=== PATIENT | male | born 1975 | race Caucasian/White ===

== ENCOUNTER 2016-10-21 11:26 | Emergency (ER) | payer OTHER ==
[~2016-10-21] VITALS: Ht 172.7 cm; Wt 68.0 kg
[~2016-10-21 11:26] MED LIST: ACETAMINOPHEN PO; CARAFATE PO; NICOTINE TRANSD21 MG EXT; NO MEDICATIONS; NORCO1 TAB 10/3 PO; PERCOCET 10/31 UDTA1 PO; PHENERGAN25 M1 PO; PHENERGAN25 MG PR; PROTONIX PO; SEROQUEL PO; TYLENOL #3 PO
[2016-10-21 12:42] LABS: URINE SOURCE CLEAN CATCH
[2016-10-21 12:50] LABS: URINE APPEARANCE CLEAR; URINE BILIRUBIN NEG (NEG); URINE BLOOD NEG (NEG); URINE COLOR DK YELLOW; URINE GLUCOSE NEG (NEG); URINE KETONE 1+ (NEG); URINE LEUKOCYTE ESTERASE NEG (NEG); URINE NITRATE NEG (NEG); URINE PROTEIN 1+ (NEG); URINE SPECIFIC GRAVITY 1.037 (1.003-1.035); URINE UROBILINOGEN 0.2 MG/DL (NEG)
[2016-10-21 12:53] LABS: URBCS1 AUWI 0-2 /[HPF] (0-2); URINE BACTERIA AUWI NEG (NEGATIVE); URINE SQUAMOUS EPITHELIAL CELL NONE SEEN /[HPF]; UWBCS1 AUWI 0-2 (0-5)
[2016-10-21 12:54] LABS: CULTURE INDICATED? NO
[2016-10-21 12:54] LABS: BASOPHIL# 0.1 X10e3 (0-0.3); BASOPHIL% 0.4 % (0-2.5); DIFF IND NO; EOSINOPHIL% 0.1 % (0.0-7.0); HEMATOCRIT 52.1 % (38.0-50.0); HEMOGLOBIN 17.3 gm/dL (13.0-16.0); LYMPHOCYTE# 2.5 X10e3 (1.0-3.5); LYMPHOCYTE% 16.9 % (17.0-45.0); MEAN CELL VOLUME 93.6 FL (83-96); MEAN CORPUSCULAR HEMOGLOBIN 31.1 PG (28-34); MEAN CORPUSCULAR HGB CONC 33.2 g/dL (30-36); MEAN PLATELET VOLUME 10.1 FL (6.5-11.5); MONOCYTE# 1.2 X10e3 (0-1.0); MONOCYTE% 8.2 % (3.0-12.0); NEUTROPHIL# 11.2 X10e3 (1.5-7.1); NEUTROPHIL% 74.4 % (40-75); PLATELET COUNT 299 X10e3 (140-420); RED BLOOD COUNT 5.56 X10e (3.90-5.60); RED CELL DISTRIBUTION WIDTH 13.7 % (11.0-15.5)
[2016-10-21 13:22] LABS: ALBUMIN SERUM 5.1 g/dL (3.5-5.0); BILIRUBIN, DIRECT 0.1 mg/dL (0.0-0.2); BILIRUBIN,INDIRECT 1.4 mg/dL (0.0-0.9); BILIRUBIN,TOTAL 1.5 mg/dL (0.2-2.0); BUN/CREATININE RATIO 21.66; CREATININE SERUM 1.2 mg/dL (0.6-1.4); GLOM FILT RATE Estimated 74.7 mL/min (>60); POTASSIUM 3.6 mmol/L (3.5-5.1); PROTEIN TOTAL SERUM 8.6 g/dL (6.0-8.3)
== END 2016-10-21 17:11 | disposition home or self-care (01) ==
LOC: CED 11:26
DX: R10.12 Left upper quadrant pain (principal); R11.2 Nausea with vomiting, unspecified; J44.9 Chronic obstructive pulmonary disease, unspecified; F17.200 Nicotine dependence, unspecified, uncomplicated; Z98.890 Other specified postprocedural states; Z79.899 Other long term (current) drug therapy
CPT/HCPCS: 36415; 80048; 80076; 81003; 83690; 85025; 96361; 96374; 96375; 96376; 99284; C9113; J2270; J2405

== ENCOUNTER 2016-10-27 12:42 | Observation (INO) | payer OTHER ==
[~2016-10-27] VITALS: Ht 172.7 cm; Wt 68.0 kg
--- NOTE | ~2016-10-27 | DS ---
Unit #: [id number] #: [id number] Patient: PAUL WASHBURN [id number] [address] [address] [id number] I MR#: [id number] NAME: PAUL WASHBURN ROOM: 227 Age: 41 Sex: M Admission Date: 10/27/2016 : 1975 Discharge Date: 10/29/2016 Attending Physician: Lalita Clark M.D. Primary Care Physician: Colt Bowles A.P.R.N. DISCHARGE SUMMARY FINAL DIAGNOSES 1. Abdominal pain, which is improved. 2. Intractable vomiting, which is resolved. 3. Gastroduodenitis status post biopsy. 4. Status post esophagogastroduodenoscopy, which showed normal esophagus, and gastroduodenitis is present. 5. History of pancreatitis in the past. 6. History of alcohol abuse; quit about 2 years ago per patient. 7. Polysubstance abuse. 8. Tobacco abuse. DISCHARGE MEDICATIONS 1. Zofran p.r.n. 2. Phenergan p.r.n. 3. Lipase/protease/amylase capsule 1 daily. 4. Sucralfate 1 gram q.i.d. 5. Protonix 40 mg b.i.d. CONSULTATIONS DONE DURING HOSPITALIZATION Dr. Fox from gastroenterology service. DIAGNOSTIC STUDIES LAB WORKUP ON DISCHARGE: Sodium 137, potassium 3.4, chloride 108, BUN 5, creatinine 0.8. Liver enzymes are stable. Albumin is 3.4, amylase and lipase in normal range. CBC shows WBC 9.1, hemoglobin 14, hematocrit 41.4, platelet count 152. Urinalysis was normal. Urine drug screen shows positive for benzodiazepine, marijuana and opiates. IMAGING: CT scan of the abdomen and pelvis was done during hospitalization, which shows no acute intraabdominal or intrapelvic pathology. Appendix is normal. HOSPITAL COURSE Mr. Washburn is a 41-year-old male who was admitted with abdominal pain and intractable nausea and vomiting. Dr. Fox was consulted. The patient had an EGD done, which showed dkvp-gh-luenctwl gastroduodenitis. Several erosions were seen in the gastric antrum. Biopsies were taken. Normal esophagus. The patient is doing much better at this time. The patient's vomiting has resolved. He has tolerated his diet for breakfast and for lunch. The patient is being discharged home on above medications. EXAMINATION ON DISCHARGE VITAL SIGNS: Blood pressure 129/80, respiratory rate 18, pulse 59, temperature 98.4, oxygen saturation 100%. Unit #: [id number] #: [id number] Patient: WHITE,PAUL HEENT: Head is normocephalic. RESPIRATORY: Chest has fair air entry. CVS: Regular rhythm. ABDOMEN: Soft. DISCHARGE INSTRUCTIONS 1. Follow up with primary care provider in 1 week. 2. Follow up with Dr. Fox in 1-2 weeks to follow up on the biopsy results. 3. Tobacco cessation counselling has been down. Plan of care has been discussed with the patient. Dictated by... Chula Le/ramon TD: 10/31/2016 11:20 JOB #: [id number] DISCHARGE SUMMARY Page 1 of 1 X Lalita Clark MD X DISCHARGE SUMMARY
--- NOTE | ~2016-10-27 | OR ---
Unit #: [id number] #: [id number] Patient: PAUL WASHBURN [id number] [address] [address] [id number] I MR#: [id number] NAME: PAUL WASHBURN ROOM: 227 Date of Procedure: 10/28/2016 Admission Date: 10/27/2016 Surgeon: Claudio Fox M.D. : 1975 Attending Physician: Lalita Clark M.D. Primary Care Physician: Colt Bowles A.P.R.N. OPERATIVE REPORT PROCEDURE PERFORMED Esophagogastroduodenoscopy with biopsy. INDICATIONS FOR PROCEDURE A 41-year-old with recurrent vomiting severe, unable to eat or drink for 10 days now. MEDICATIONS Monitored anesthesia. POSTOPERATIVE FINDINGS 1. Mild to moderate gastroduodenitis. Several erosions seen in gastric antrum. Biopsies taken. 2. Normal esophagus. PLAN 1. Continue with PPI and symptomatic treatment. 2. Follow up on pathology report. DESCRIPTION OF PROCEDURE The patient was explained of the procedure, risks, and benefits along with risks and benefits of anesthesia. He was brought to the endoscopy room. Propofol anesthesia was given. Bite block was placed. The scope was passed down the mouth into the esophagus, stomach, duodenum, and distal duodenum. Findings as described. Biopsies taken. Gently, the scope was pulled out. He tolerated it well. No major complications were seen. Dictated by... Chula Marinelli/balta TD: 10/28/2016 18:58 JOB #: [id number] Unit #: [id number] #: [id number] Patient: PAUL WASHBURN OPERATIVE REPORT Page 1 of 1 X Claudio Fox MD X PROCEDURE OPERATIVE NOTE
--- NOTE | ~2016-10-27 | HP ---
Unit #: [id number] #: [id number] Patient: PAUL WASHBURN [id number] [address] [place], [place] [address] [id number] I MR#: [id number] NAME: PAUL WASHBURN ROOM: 227 Age: 41 Sex: M Admission Date: 10/27/2016 : 1975 Attending Physician: Lalita Clark M.D. Primary Care Physician: Colt Bowles A.P.R.N. HISTORY AND PHYSICAL CHIEF COMPLAINT Abdominal, nausea and vomiting. HISTORY OF PRESENTING ILLNESS This is a 41-year-old male who has come to the ER 3 times prior to this admission with abdominal pain, intractable nausea and vomiting. According to the patient this has been going on since October 17. Off and on he is having severe pain, a level of 8 to 9/10, sometimes 10, and then after the pain, starts intractable nausea and vomiting. He is not able to eat or drink much. He came to the ER and was admitted. According to the patient, this has happened to him multiple times but not this severe and not for so long. The patient has history of pancreatitis in the past. The patient has history of alcohol abuse, quit about 2 years ago. What I understand, he has seen a advanced practice registered nurse in the past. He does not complain of fever, chills or rigors. No complaint of chest pain. No complaint of diarrhea or constipation. No complaint of syncopal episodes. PAST MEDICAL HISTORY 1. History of gastritis in the past. 2. History of pancreatitis. 3. History of alcohol abuse. 4. History of bipolar disorder. FAMILY HISTORY Noncontributory. SOCIAL HISTORY The patient continues to smoke 1/2 to 1 pack per day. According to him, he quit 2 years ago. He does admit to using marijuana. MEDICATIONS Home medications are being compiled. ALLERGIES None. REVIEW OF SYMPTOMS As per history of presenting illness. PHYSICAL EXAMINATION GENERAL: The patient is lying comfortably in bed. Does not seem to be in any respiratory distress. VITAL SIGNS: Blood pressure is 112/70, respiratory rate 18, pulse 62, Unit #: [id number] #: [id number] Patient: PAUL WASHBURN temperature 98.3, oxygen saturation 97%. HEENT: Head is normocephalic. Eye movements are normal. NECK: Neck is supple. Trachea is in midline. No thyromegaly. No bruit. RESPIRATORY: Chest has fair air entry. No adventitious sounds. CVS: S1, S2 positive. Regular rhythm. ABDOMEN: Soft. Tenderness is present in the epigastric area and left upper quadrant. EXTREMITIES: Negative edema. 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 No focal neurologic deficits. DIAGNOSTIC STUDIES LAB WORKUP: WBC 11.7, hemoglobin 16, hematocrit 48.6, platelet count 252. Sodium 141, potassium 3.6, chloride 103, BUN 12, creatinine 1.1, lipase 19, amylase 26. Liver enzymes are stable. Indirect bilirubin is elevated to 1.4. IMAGING: CT scan of the abdomen and pelvis was done in the ER, and that shows no acute intraabdominal or intrapelvic pathology. Appendix is normal. ASSESSMENT 1. The patient is being admitted to med/surg unit with acute abdominal pain. 2. Intractable nausea and vomiting. 3. History of pancreatitis in the past. Amylase and lipase is in normal range at this time. 4. History of alcohol abuse; according to the patient, quit 2 years ago. 5. History of gastritis. 6. Polysubstance abuse. 7. Tobacco abuse. PLAN Plan is admit to med/surg. IV fluid, D5 half normal saline at 100 an hour, is being started. The patient is NPO. Phenergan 12.5 mg q.6 p.r.n. Morphine 2 mg to 4 mg q.4 as needed for pain management. IV Protonix [address] Fox will be consulted. We will check amylase and lipase one more time. Plan of care has been discussed with the patient at length. Tobacco cessation counselling has been done. Nicotine patch will be placed. Dictated by Chula Le TD: 10/28/2016 08:12 JOB #: [id number] HISTORY AND PHYSICAL Page 1 of 1 X Lalita Clark MD HISTORY AND PHYSICAL
--- NOTE | ~2016-10-27 | CT2 ---
[facility] A Service of [facility] RADIOLOGY TEXT RESULTS PATIENT: MADDISONPAUL LOCATION: C2A : 75 UNIT #: [id number] AGE: [address]: Lalita Clark MD SEX: M ORDER DR: [id number] [facility]. [place], [place] [address] [id number] I MR#: [id number] Acc #: [id number] NAME: PAUL WASHBURN : 1975 SEX: M STUDY DATE/TIME: 10/27/2016 16:42 UNIT: [facility] ROOM: 227 STUDY DESCRIPTION: CT Abd and Pelv W Cont Attending Physician: Arnold Campbell M.D. Ordering Physician: Kate Ivey A.P.R.N. Primary Care Physician: Colt Bowles A.P.R.N. MEDICAL IMAGING REPORT This report is preliminary unless electronic signature is present EXAM CT abdomen and pelvis with contrast HISTORY 41-year-old male left upper and left lower quadrant abdominal pain since October 17, nausea, vomiting. Past history of pancreatitis, gastritis. COMPARISON CT abdomen and pelvis 11/30/2015. FINDINGS Axial images performed through the abdomen and pelvis following IV contrast. 100 mL Isovue-370 injected. Multiplanar reconstructions. This CT examination was performed with one or more of the following radiation dose reduction techniques: automatic exposure control, adjustment of mA and/or kV according to patient size, and iterative reconstruction. ABDOMEN: Lung bases unremarkable. Liver, spleen, gallbladder, pancreas, kidneys and adrenal glands appear normal. No free air or free fluid. The visualized GI tract to include the appendix unremarkable. Retroperitoneum appears normal. PELVIS: Bladder and prostate appear normal. Osseous structures and soft tissues unremarkable. IMPRESSION No acute intraabdominal or intrapelvic pathology. Appendix normal. Dictated by... Tere Vasquez M.D. THIS IS AN ELECTRONICALLY VERIFIED REPORT [facility] A Service of [facility] RADIOLOGY TEXT RESULTS PATIENT: MADDISONPAUL LOCATION: C2A : 75 UNIT #: [id number] AGE: [address]: Lalita Clark MD SEX: M ORDER DR: Tere Vasquez M.D. at 10/28/2016 7:15 AM CHAPITO/chiquita TD: 10/28/2016 05:56 JOB #: [id number] MEDICAL IMAGING REPORT Page 1 of 1 COPY
[2016-10-27 14:06] LABS: URINE SOURCE CLEAN CATCH
[2016-10-27 14:17] LABS: BASOPHIL% 0.3 % (0-2.5); EOSINOPHIL# 0.1 X10e3 (0-0.7); EOSINOPHIL% 0.6 % (0.0-7.0); HEMATOCRIT 48.6 % (38.0-50.0); LYMPHOCYTE# 1.8 X10e3 (1.0-3.5); MEAN CORPUSCULAR HEMOGLOBIN 30.9 PG (28-34); MEAN CORPUSCULAR HGB CONC 32.8 g/dL (30-36); MEAN PLATELET VOLUME 9.8 FL (6.5-11.5); MONOCYTE# 0.6 X10e3 (0-1.0); NEUTROPHIL# 9.2 X10e3 (1.5-7.1); NEUTROPHIL% 79.1 % (40-75); PLATELET COUNT 252 X10e3 (140-420); RED BLOOD COUNT 5.17 X10e (3.90-5.60); RED CELL DISTRIBUTION WIDTH 13.6 % (11.0-15.5); WHITE BLOOD COUNT 11.7 X10e3 (4.0-10.5)
[2016-10-27 14:19] LABS: DIFF IND NO
[2016-10-27 14:20] LABS: URINE APPEARANCE TURBID; URINE BILIRUBIN NEG (NEG); URINE BLOOD NEG (NEG); URINE COLOR YELLOW; URINE GLUCOSE NEG (NEG); URINE KETONE 3+ (NEG); URINE LEUKOCYTE ESTERASE NEG (NEG); URINE NITRATE NEG (NEG); URINE PH 7.5 (5-8); URINE PROTEIN NEG (NEG); URINE SPECIFIC GRAVITY 1.028 (1.003-1.035)
[2016-10-27 14:36] LABS: ALBUMIN SERUM 4.4 g/dL (3.5-5.0); BILIRUBIN, DIRECT 0.1 mg/dL (0.0-0.2); BILIRUBIN,INDIRECT 1.4 mg/dL (0.0-0.9); BILIRUBIN,TOTAL 1.5 mg/dL (0.2-2.0); BUN/CREATININE RATIO 10.9; CALCIUM SERUM 9.1 mg/dL (8.4-10.2); CREATININE SERUM 1.1 mg/dL (0.6-1.4); POTASSIUM 3.6 mmol/L (3.5-5.1); PROTEIN TOTAL SERUM 6.9 g/dL (6.0-8.3)
[2016-10-27 14:39] LABS: AMPHETAMINE NEG (NEG); BARBITURATES NEG (NEG); BENZODIAZEPINES POS (NEG); COCAINE NEG (NEG); MARIJUANA POS (NEG); OPIATES POS (NEG); TRICYCLIC ANTIDEPRESSANTS NEG (NEG); U METHADONE NEG (NEG)
[2016-10-27 15:05] LABS: CULTURE INDICATED? NO
[2016-10-28 05:21] LABS: BASOPHIL# 0.1 X10e3 (0-0.3); BASOPHIL% 0.6 % (0-2.5); EOSINOPHIL# 0.3 X10e3 (0-0.7); EOSINOPHIL% 2.8 % (0.0-7.0); HEMATOCRIT 42.4 % (38.0-50.0); LYMPHOCYTE# 4.1 X10e3 (1.0-3.5); MEAN CELL VOLUME 94.2 FL (83-96); MEAN CORPUSCULAR HEMOGLOBIN 30.9 PG (28-34); MEAN CORPUSCULAR HGB CONC 32.8 g/dL (30-36); MEAN PLATELET VOLUME 9.7 FL (6.5-11.5); MONOCYTE# 0.9 X10e3 (0-1.0); MONOCYTE% 8.3 % (3.0-12.0); NEUTROPHIL# 5.1 X10e3 (1.5-7.1); NEUTROPHIL% 49.3 % (40-75); PLATELET COUNT 208 X10e3 (140-420); RED CELL DISTRIBUTION WIDTH 13.5 % (11.0-15.5); WHITE BLOOD COUNT 10.4 X10e3 (4.0-10.5)
[2016-10-28 05:24] LABS: DIFF IND NO; HEMOGLOBIN 13.9 gm/dL (13.0-16.0)
[2016-10-28 05:42] LABS: ALBUMIN SERUM 3.5 g/dL (3.5-5.0); BILIRUBIN,TOTAL 0.9 mg/dL (0.2-2.0); BUN/CREATININE RATIO 11.11; CALCIUM SERUM 8.7 mg/dL (8.4-10.2); CREATININE SERUM 0.9 mg/dL (0.6-1.4); GLOM FILT RATE Estimated 105.7 mL/min (>60); POTASSIUM 3.7 mmol/L (3.5-5.1); PROTEIN TOTAL SERUM 5.5 g/dL (6.0-8.3)
[2016-10-28 08:56] LABS: AMYLASE 22 U/L (0-46); LIPASE 20 U/L (22-51)
[2016-10-29] MEDS ORDERED: CREON DR 3,0001 EACH PO (03:19)
[2016-10-29] MEDS ORDERED: PANTOPRAZOLE SO40 MG PO (03:22)
[2016-10-29] MEDS ORDERED: CARAFATE1 GM PO (03:24)
[2016-10-29] MEDS ORDERED: ONDANSETRON HCL4 M1 PO (03:26)
[2016-10-29] MEDS ORDERED: PHENERGAN25 M1 PO (03:28)
[2016-10-29 05:51] LABS: HEMATOCRIT 41.4 % (38.0-50.0); MEAN CELL VOLUME 95.5 FL (83-96); MEAN CORPUSCULAR HEMOGLOBIN 32.3 PG (28-34); MEAN CORPUSCULAR HGB CONC 33.8 g/dL (30-36); MEAN PLATELET VOLUME 10.4 FL (6.5-11.5); RED BLOOD COUNT 4.33 X10e (3.90-5.60); RED CELL DISTRIBUTION WIDTH 13.5 % (11.0-15.5); WHITE BLOOD COUNT 9.1 X10e3 (4.0-10.5)
[2016-10-29 06:31] LABS: ALBUMIN SERUM 3.4 g/dL (3.5-5.0); BILIRUBIN,TOTAL 1.1 mg/dL (0.2-2.0); BUN/CREATININE RATIO 6.25; CALCIUM SERUM 8.5 mg/dL (8.4-10.2); CREATININE SERUM 0.8 mg/dL (0.6-1.4); POTASSIUM 3.4 mmol/L (3.5-5.1); PROTEIN TOTAL SERUM 5.2 g/dL (6.0-8.3)
== END 2016-10-29 16:55 | disposition home or self-care (01) ==
LOC: CED 12:42 → C2A 16:15 → CEDOF 16:15 → C2A 16:38 → CED 16:38 → C2A 17:09 → CEDOF 17:09 → C2A 10-29 16:55
PROVIDERS: Internal Medicine; Nurse Practitioner; Physician Assistant Medical
DX: R10.9 Unspecified abdominal pain (principal); R11.2 Nausea with vomiting, unspecified; K29.90 Gastroduodenitis, unspecified, without bleeding; J44.9 Chronic obstructive pulmonary disease, unspecified; Z87.19 Personal history of other diseases of the digestive system; Z87.898 Personal history of other specified conditions; F17.200 Nicotine dependence, unspecified, uncomplicated
CPT/HCPCS: 36415; 74177; 80048; 80053; 80076; 80307; 81003; 82150; 83690; 85025; 85027; 88305; 88312; 96374; 96375; 96376; 99285; C9113; G0378; J2250; J2270; J2405; J2550; Q9967